=== PATIENT | male | born 1985 | race Caucasian/White ===

== ENCOUNTER 2021-04-06 15:11 | Emergency (ER) | payer SELFPAY | END 2021-04-06 17:10 | disposition home or self-care (01) | LOC: FER 15:11 | DX: S61.411A Laceration without foreign body of right hand, initial encounter (principal); W25.XXXA Contact with sharp glass, initial encounter; Y92.009 Unspecified place in unspecified non-institutional (private) residence as the place of occurrence of the external cause ==

== ENCOUNTER 2021-12-06 10:35 | Emergency (ER) | payer OTHER ==
[2021-12-06 11:48] LABS: ALBUMIN 3.8 g/dL (3.4-5.0); BILIRUBIN - TOTAL 0.5 mg/dL (0.2-1.0); BUN/CREAT RATIO (CALC) 23.8 RATIO; CREATININE 1.05 mg/dL (0.67-1.17); GLOBULIN (CALCULATION) 3.8 g/dL; POTASSIUM 3.6 mmol/L (3.5-5.1); TOTAL PROTEIN 7.6 g/dL (6.4-8.2)
[2021-12-06 11:49] LABS: BASOPHIL 0.4 % (0-2); EOSINOPHIL 1.9 % (0-5); HCT 49.7 % (42.0-52.0); HGB 16.5 g/dl (13.2-18.0); LYMPHOCYTE 42.5 % (15-48); MCH 28.3 pg (25.0-31.0); MCHC 33.2 g/dL (32.0-36.0); MCV 85.1 fL (78.0-100.0); MONOCYTE 4.7 % (0-12); MPV 9.4 fL (6.0-9.5); NEUTROPHIL 50.1 % (41-80); NRBC 0; PLT 397 K/uL (150-400); RBC 5.84 M/uL (4.70-6.00); RDW 13.7 % (11.5-14.0); WBC 8.6 K/uL (4.0-10.5)
[2021-12-06 12:05] LABS: LACTIC ACID 2.4 mmol/L (0.4-1.9)
[2021-12-06 12:39] LABS: BARBITURATES NEGATIVE (NEGATIVE); ECSTASY (MDMA) POSITIVE (NEGATIVE); MARIJUANA (THC) POSITIVE (NEGATIVE); METHADONE NEGATIVE (NEGATIVE); OPIATES POSITIVE (NEGATIVE)
[2021-12-06 12:40] LABS: AMPHETAMINES POSITIVE (NEGATIVE); OXYCODONE NEGATIVE (NEGATIVE)
[2021-12-06 12:43] LABS: BILIRUBIN NEGATIVE (NEGATIVE); BLOOD NEGATIVE Ery/uL (NEGATIVE); CLARITY CLEAR (CLEAR); COLOR YELLOW (YELLOW); GLUCOSE (U) NORMAL (NORMAL); LEUKOCYTES NEGATIVE Leu/uL (NEGATIVE); NITRITE NEGATIVE (NEGATIVE); PROTEIN TRACE (LOW) mg/dL (NEGATIVE); SPECIFIC GRAVITY 1.015 (1.001-1.030); UROBILINOGEN 0.2 mg/dL (0.2-1.0); pH 6.5 (5.0-9.0)
[2021-12-06 12:51] LABS: BACTERIA TRACE; MUCOUS TRACE
[2021-12-06] MEDS ORDERED: BENADRYL25 MG PO (18:14)
[2021-12-06] MEDS ORDERED: PEPCID AC20 MG PO (18:14)
[2021-12-06] MEDS ORDERED: PREDNISONE 20MG20 MG PO (18:14)
== END 2021-12-06 19:26 | disposition home or self-care (01) ==
LOC: FER 10:35
PROVIDERS: Emergency Medicine
DX: T88.6XXA Anaphylactic reaction due to adverse effect of correct drug or medicament properly administered, initial encounter (principal); T36.0X5A Adverse effect of penicillins, initial encounter; F17.200 Nicotine dependence, unspecified, uncomplicated; R42 Dizziness and giddiness; L50.0 Allergic urticaria; R06.02 Shortness of breath; Z28.310 Unvaccinated for COVID-19; Y92.009 Unspecified place in unspecified non-institutional (private) residence as the place of occurrence of the external cause
CPT/HCPCS: 36415; 36600; 71045; 80053; 80305; 81001; 82553; 82803; 83605; 84484; 85025; 93005; 94640; 94664; J0171; J1200; J2310; J2405; J2930; J7030